=== PATIENT | female | born 1945 | race Caucasian/White ===

== ENCOUNTER → 2018-03-27 11:29 | Outpatient (CLI) | payer MEDICARE, SELFPAY ==
[2018-03-27 12:01] LABS: Add Manual Diff / Slide Review NO; Eosinophils Percent Auto 2.1 % (2-4); Hematocrit 39.3 % (36-46); Hemoglobin 13.1 g/dL (12.0-16.0); Lymphocytes Percent Auto 16.8 % (25-40); Mean Corpuscular HGB Conc 33.3 % (30-36); Mean Corpuscular Hemoglobin 28.5 PG (26-34); Mean Corpuscular Volume 85.4 fL (80-100); Neutrophils Absolute Auto 5400 /uL (3000-5900); Neutrophils Percent Auto 73.1 % (50-75); Platelet Count 351 X10^3/uL (150-400); Red Cell Distribution Width 14.6 % (11.6-14.8); White Blood Cell Count 7.4 X10^3/uL (4.5-11.0)
[2018-03-27 12:22] LABS: Alanine Aminotransferase 19 IU/L (9-52); Albumin Globulin Ratio 1.4 (1.0-2.8); Alkaline Phosphatase 74 U/L (38-126); Aspartate Aminotransferase 19 IU/L (14-36); BUN Creatinine Ratio 21.7 (6-22); Bilirubin Total 0.4 mg/dL (0.2-1.3); Calcium 9.1 mg/dL (8.4-10.2); Estimated Glomerular Filt Rate > 60.0 mL/min (>60); Globulin 2.9 g/dL (1.7-4.1); Glucose 116 mg/dL (80-110); HEMOLYSIS < 15 (0-50); Sodium 139 mmol/L (137-145); Total Protein 6.9 g/dL (6.3-8.2)
[2018-03-29 16:06] LABS: Cancer Antigen 27.29 22 U/mL (< 38)
== END ==
PROVIDERS: PCP Internal Medicine; Visit Provider Nurse Practitioner Gerontology
DX: C50.912 Malignant neoplasm of unspecified site of left female breast (principal)
CPT/HCPCS: 36415; 80053; 85025; 86300

== ENCOUNTER → 2018-09-01 14:55 | Outpatient (CLI) | payer MEDICARE, SELFPAY ==
--- NOTE | 2018-09-01 | DI.RAD.S_ITS ---
PROCEDURE: XR CHEST 2V INDICATIONS: DYSPNEA TECHNIQUE: 2 views of the chest were acquired. COMPARISON: [facility], CHEST 2 VIEW, 09/04/2015, 9:09. [facility], CHEST 2 VIEW, 12/30/2014, 15:13. [facility], CHEST 2 VIEW, 05/21/2014, 15:27. FINDINGS: Surgical changes and devices: None. Lungs and pleura: No pleural effusions or pneumothorax. Lungs are clear. Mediastinum: Mediastinal contours are normal except for a moderate-sized hiatal hernia behind the heart. Heart size is normal. Bones and chest wall: No suspicious bony abnormalities. Soft tissues appear unremarkable. IMPRESSION: Moderate hiatal hernia behind the heart. No source of dyspnea found. Dictated by: Sekou Villanueva M.D. on 09/01/2018 at 15:46 Approved by: Sekou Villanueva M.D. on 09/01/2018 at 15:47
== END ==
PROVIDERS: PCP Internal Medicine; Visit Provider Student in an Organized Health Care Education/Training Program
DX: R06.00 Dyspnea, unspecified (principal); K44.9 Diaphragmatic hernia without obstruction or gangrene
CPT/HCPCS: 71046

== ENCOUNTER → 2018-09-25 11:05 | Outpatient (CLI) | payer MEDICARE, SELFPAY ==
[2018-09-25 11:42] LABS: Add Manual Diff / Slide Review NO; Basophils Percent Auto 1.2 % (0-2); Eosinophils Percent Auto 1.4 % (2-4); Hematocrit 42.8 % (36-46); Hemoglobin 14.2 g/dL (12.0-16.0); Lymphocytes Percent Auto 17.3 % (25-40); Mean Corpuscular HGB Conc 33.2 % (30-36); Mean Corpuscular Hemoglobin 28.9 PG (26-34); Mean Corpuscular Volume 86.9 fL (80-100); Monocytes Percent Auto 5.5 % (3-14); Neutrophils Absolute Auto 5800 /uL (3000-5900); Neutrophils Percent Auto 74.6 % (50-75); Platelet Count 442 X10^3/uL (150-400); Red Blood Cell Count 4.93 X10^6/uL (4.0-5.2); Red Cell Distribution Width 14.1 % (11.6-14.8); White Blood Cell Count 7.8 X10^3/uL (4.5-11.0)
[2018-09-25 11:55] LABS: Alanine Aminotransferase 29 IU/L (9-52); Albumin 4.3 g/dL (3.5-5.0); Albumin Globulin Ratio 1.4 (1.0-2.8); Alkaline Phosphatase 71 U/L (38-126); Aspartate Aminotransferase 28 IU/L (14-36); BUN Creatinine Ratio 25.7 (6-22); Bilirubin Total 0.3 mg/dL (0.2-1.3); Blood Urea Nitrogen 18 mg/dL (7-17); Calcium 9.1 mg/dL (8.4-10.2); Carbon Dioxide 28 mmol/L (22-32); Chloride 101 mmol/L (98-107); Estimated Glomerular Filt Rate > 60.0 mL/min (>60); Globulin 3.1 g/dL (1.7-4.1); Glucose 131 mg/dL (80-110); HEMOLYSIS < 15 (0-50); Potassium 3.9 mmol/L (3.4-5.1); Sodium 141 mmol/L (137-145); Total Protein 7.4 g/dL (6.3-8.2)
[2018-09-27 14:27] LABS: Cancer Antigen 27.29 28 U/mL (< 38)
== END ==
PROVIDERS: PCP Internal Medicine; Visit Provider Nurse Practitioner Gerontology
DX: C50.911 Malignant neoplasm of unspecified site of right female breast (principal); C50.912 Malignant neoplasm of unspecified site of left female breast; Z17.0 Estrogen receptor positive status [ER+]; Z79.811 Long term (current) use of aromatase inhibitors
CPT/HCPCS: 36415; 80053; 85025; 86300

== ENCOUNTER → 2018-10-04 14:06 | Outpatient (CLI) | payer MEDICARE, SELFPAY | PROVIDERS: PCP Internal Medicine; Visit Provider Nurse Practitioner Gerontology | DX: M85.851 Other specified disorders of bone density and structure, right thigh (principal); Z78.0 Asymptomatic menopausal state; E07.9 Disorder of thyroid, unspecified; C50.919 Malignant neoplasm of unspecified site of unspecified female breast; Z82.62 Family history of osteoporosis; Z87.891 Personal history of nicotine dependence | CPT/HCPCS: 77080 ==

== ENCOUNTER → 2019-01-17 12:29 | Outpatient (CLI) | payer MEDICARE, SELFPAY ==
--- NOTE | 2019-01-17 | DI.MG.S_ITS ---
BILATERAL DIGITAL SCREENING MAMMOGRAM 3D/2D WITH CAD POST LUMPECTOMY: 01/17/2019 CLINICAL: Routine screening. Personal history of bilateral breast cancer. Family history of breast cancer. Comparison is made to exams dated: 01/16/2018 mammogram, 12/13/2016 mammogram, and 12/08/2015 mammogram - [facility]. The tissue of both breasts is heterogeneously dense. This may lower the sensitivity of mammography. Current study was also evaluated with a Computer Aided Detection (CAD) system. There are benign post operative findings in both breasts. There also are benign calcifications in both breasts. No significant masses, calcifications, or other findings are seen in either breast. There has been no significant interval change. IMPRESSION: There is no mammographic evidence of malignancy. A 1 year screening mammogram is recommended. This exam was interpreted at Station ID: [id number]. NOTE: For mammograms, a report in lay terms will be sent to the patient. Approximately 15% of breast malignancies will not be visualized mammographically. In the management of a palpable breast mass, a negative mammogram must not discourage biopsy of a clinically suspicious lesion. Electronically Signed By: Beau leigh/anjelica:01/17/2019 13:35:03 copy to: Daniel Diaz letter sent: Normal Exam ACR BI-RADS Category 2: Benign Finding(s) 3342F
== END ==
PROVIDERS: PCP Internal Medicine; Visit Provider Nurse Practitioner Gerontology
DX: Z12.31 Encounter for screening mammogram for malignant neoplasm of breast (principal); Z85.3 Personal history of malignant neoplasm of breast; Z80.3 Family history of malignant neoplasm of breast
CPT/HCPCS: 77063; 77067

== ENCOUNTER → 2020-01-18 10:45 | Outpatient (CLI) | payer MEDICARE, SELFPAY ==
--- NOTE | 2020-01-18 10:46 | DI.MG.S_ITS ---
BILATERAL DIGITAL SCREENING MAMMOGRAM 3D/2D WITH CAD POST LUMPECTOMY: 01/18/2020 CLINICAL: Routine screening. Personal history of bilateral breast cancer. Family history of breast cancer. Comparison is made to exams dated: 01/18/2020 mammogram, 01/17/2019 mammogram, and 01/16/2018 mammogram - [facility]. The tissue of both breasts is heterogeneously dense. This may lower the sensitivity of mammography. Current study was also evaluated with a Computer Aided Detection (CAD) system. There are possible developing oval equal density asymmetries in the right breast anterior depth central to the nipple seen on the craniocaudal view only. These appear more prominent and are noted within site of post-surgical scar. No other significant masses, calcifications, or other findings are seen in either breast. IMPRESSION: INCOMPLETE: NEEDS ADDITIONAL IMAGING EVALUATION The possible developing oval equal density asymmetries in the right breast is indeterminate. Additional views with possible ultrasound are recommended. This exam was interpreted at Station ID: [id number]. NOTE: For mammograms, a report in lay terms will be sent to the patient. Approximately 15% of breast malignancies will not be visualized mammographically. In the management of a palpable breast mass, a negative mammogram must not discourage biopsy of a clinically suspicious lesion. Electronically Signed By: Beau Pedroza M.D. aty/:01/18/2020 13:06:14 copy to: Daniel Diaz copy to: RADHA CASANOVA letter sent: Additional Imaging Needed ACR BI-RADS Category 0: Incomplete 3340F
== END ==
PROVIDERS: PCP Internal Medicine
DX: Z12.31 Encounter for screening mammogram for malignant neoplasm of breast (principal); Z85.3 Personal history of malignant neoplasm of breast; Z80.3 Family history of malignant neoplasm of breast
CPT/HCPCS: 77063; 77067

== ENCOUNTER → 2020-02-04 12:35 | Outpatient (CLI) | payer MEDICARE, SELFPAY ==
--- NOTE | 2020-02-04 12:36 | DI.US.S_ITS ---
ULTRASOUND OF RIGHT BREAST: 02/04/2020 CLINICAL: Patient returns today to evaluate a density in the right breast. Comparison is made to exams dated: 01/18/2020 mammogram, 01/18/2020 mammogram, 01/17/2019 mammogram, 01/16/2018 mammogram, and 12/13/2016 mammogram - [facility]. Ultrasound of the right breast was performed on the area of interest. Crawford scale images of the real-time examination were reviewed. There is a mass in the right breast at 7 o'clock anterior depth. IMPRESSION: PROBABLY BENIGN There is no sonographic abnormality seen in the right breast to correspond with the subtle mammography finding at 7 o'clock. The mammogram finding may represent evolution of the surgical scar. A follow-up right mammogram and an ultrasound in 6 months is recommended to demonstrate stability. This exam was interpreted at Station ID: [id number]. Electronically Signed By: Alisson Anthony M.D. lk/:02/04/2020 16:33:52 copy to: Daniel Diaz copy to: RADHA CASANOVA letter sent: Followup Recommended Ultrasound BI-RADS: 3 Probably benign
--- NOTE | 2020-02-04 12:36 | DI.MG.S_ITS ---
UNILATERAL RIGHT DIGITAL DIAGNOSTIC MAMMOGRAM 3D/2D WITH ADDITIONAL VIEWS POST LUMPECTOMY: 02/04/2020 CLINICAL: Additional evaluation requested from prior study. Comparison is made to exams dated: 01/18/2020 mammogram, 01/17/2019 mammogram, and 01/16/2018 mammogram - [facility]. The tissue of right breast is heterogeneously dense. This may lower the sensitivity of mammography. There is a possible developing oval equal density asymmetry in the right breast anterior depth central to the nipple seen on the craniocaudal view only. This is less prominent on additional views. No other significant masses or calcifications are seen in the breast. IMPRESSION: INCOMPLETE: NEEDS ADDITIONAL IMAGING EVALUATION The possible developing oval equal density asymmetry in the right breast is indeterminate. A targeted ultrasound of the right breast is recommended and will be performed immediately following this exam. This exam was interpreted at Station ID: [id number]. NOTE: For mammograms, a report in lay terms will be sent to the patient. Approximately 15% of breast malignancies will not be visualized mammographically. In the management of a palpable breast mass, a negative mammogram must not discourage biopsy of a clinically suspicious lesion. Electronically Signed By: Alisson Anthony M.D. lk/:02/04/2020 13:55:40 copy to: Daniel Diaz copy to: RADHA SANCHEZ BI-RADS Category 0: Incomplete 3340F
== END ==
PROVIDERS: PCP Internal Medicine; Referring Provider Internal Medicine Hematology & Oncology; Visit Provider Internal Medicine Hematology & Oncology
DX: R92.8 Other abnormal and inconclusive findings on diagnostic imaging of breast (principal); N63.13 Unspecified lump in the right breast, lower outer quadrant; C50.911 Malignant neoplasm of unspecified site of right female breast; Z17.0 Estrogen receptor positive status [ER+]
CPT/HCPCS: 76642; 77065; G0279

== ENCOUNTER → 2020-08-11 13:26 | Outpatient (CLI) | payer MEDICARE, SELFPAY ==
--- NOTE | 2020-08-11 13:28 | DI.US.S_ITS ---
LIMITED ULTRASOUND OF RIGHT BREAST: 08/11/2020 CLINICAL: Patient returns today to evaluate asymmetry in the right breast. Comparison is made to exams dated: 08/11/2020 mammogram, 02/04/2020 ultrasound, 02/04/2020 mammogram, and 01/18/2020 mammogram - [facility]. Color flow and real-time ultrasound of the right breast 7 o'clock region were performed. Crawford scale images of the real-time examination were reviewed. No abnormality in the region of the mammographic asymmetry in the right breast at 7 o'clock anterior depth near the lumpectomy site. This was not seen on prior ultrasound as well. No significant abnormalities were seen sonographically in the right breast. IMPRESSION: PROBABLY BENIGN No sonographic evidence of malignancy. No mass in the region of the asymmetry in the right breast. A follow-up mammogram in 6 months is recommended to demonstrate stability. This exam was interpreted at Station ID: [id number]. Electronically Signed By: Ryan Medina M.D. slc/:08/11/2020 15:49:52 copy to: Daniel Diaz letter sent: Followup Recommended Ultrasound BI-RADS: 3 Probably benign
--- NOTE | 2020-08-11 13:28 | DI.MG.S_ITS ---
UNILATERAL RIGHT DIGITAL DIAGNOSTIC MAMMOGRAM 3D/2D: 08/11/2020 CLINICAL: Additional evaluation requested from prior study. Comparison is made to exams dated: 02/04/2020 mammogram, 01/18/2020 mammogram, 01/18/2020 mammogram, 01/17/2019 mammogram, and 02/04/2020 [facility]. The tissue of right breast is heterogeneously dense. This may lower the sensitivity of mammography. There is a 0.4 cm oval equal density asymmetry in the right breast anterior depth central to the nipple. This may be seen inferior to the surgical scar on the MLO view. This is less prominent and was not seen on the prior ultrasound. There is a post-surgical scar associated with the asymmetry. No other significant masses or calcifications are seen in the breast. IMPRESSION: INCOMPLETE: NEEDS ADDITIONAL IMAGING EVALUATION Asymmetry in the right breast is indeterminate. A targeted ultrasound is recommended and will immediately follow. This exam was interpreted at Station ID: [id number]. NOTE: For mammograms, a report in lay terms will be sent to the patient. Approximately 15% of breast malignancies will not be visualized mammographically. In the management of a palpable breast mass, a negative mammogram must not discourage biopsy of a clinically suspicious lesion. Electronically Signed By: Ryan Medina M.D. slc/:08/11/2020 14:07:45 copy to: Daniel SANCHEZ BI-RADS Category 0: Incomplete [id number]
== END ==
PROVIDERS: PCP Internal Medicine; Referring Provider Internal Medicine; Visit Provider Internal Medicine
DX: R92.8 Other abnormal and inconclusive findings on diagnostic imaging of breast (principal); N64.89 Other specified disorders of breast
CPT/HCPCS: 76642; 77065; G0279

== ENCOUNTER 2020-08-24 11:11 | Emergency (ER) | payer MEDICARE, SELFPAY ==
[2020-08-24 11:25] VITALS: BP 176/87; PULSE 88; RESP 16; TEMP 37.2; O2SAT 97; BMI 22.4
--- NOTE | 2020-08-24 11:25 | DI.RAD.S_ITS ---
PROCEDURE: XR CHEST 1V INDICATIONS: chest pain TECHNIQUE: One view of the chest was acquired. COMPARISON: [facility], CR, XR CHEST 2V, 09/01/2018, 14:49. FINDINGS: Surgical changes and devices: None. Lungs and pleura: Lungs are clear. No pleural effusions or pneumothorax. Mediastinum: Moderate size hiatal hernia. Otherwise unremarkable appearance of the cardiac silhouette. Tortuous aorta. Bones and chest wall: No suspicious bony lesions. Overlying soft tissues appear unremarkable. IMPRESSION: No acute cardiopulmonary abnormality. Moderate-sized hiatal hernia. Dictated by: Rolando Negro M.D. on 08/24/2020 at 10:58 Approved by: Rolando Negro M.D. on 08/24/2020 at 10:59
--- NOTE | 2020-08-24 11:27 | ED.DIZZY ---
HPI - Dizziness General Chief Complaint: Dizziness Stated Complaint: Dizziness Time Seen by Provider: 08/24/20 11:23 Source: patient and EMS Limitations: no limitations History of Present Illness HPI Narrative: Patient is a 75-year-old female with history of ocular migraines presenting with a dizziness and headache. She said yesterday she was reading on her [place] when she suddenly got severe headache in her head. He then was feeling dizzy afterwards. She said every time she turns her head stood up she got extremely dizzy. She did not pass out. She has no numbness tingling or weakness. She does not feel any nausea. She did Google and came up with diagnosis of benign paroxysmal positional vertigo. She continue to listen to audible book, felt like her dizziness got a little bit better. However this morning she woke up and it was worse. Decided to come to the ED for further evaluation Related Data Home Medications Medication Instructions Recorded Confirmed CA PANTOTHENATE/FOLIC ACID/VIT 1 tab PO QDAY #0 02/21/13 05/14/20 (MULTIVITAMIN) Ginkgo Biloba (GINKGO BILOBA) 60 mg PO QDAY #0 02/21/13 05/14/20 [MICHEAL FOLIPLEX W/B12] 1 tab DAILY #0 02/21/13 05/14/20 cholecalciferol (vitamin D3) 10,000 unit PO QDAY #0 02/21/13 05/14/20 citalopram 10 mg PO QDAY #0 02/21/13 05/14/20 desipramine [Norpramin] 25 mg PO HS #0 02/21/13 05/14/20 metoprolol tartrate 50 mg PO HS #0 02/21/13 05/14/20 [CURCUMIN] 1 tab BID #0 04/22/17 05/14/20 [id number]-lpy-axj-yaoiacv-ast 1 cap PO QAM 04/03/18 05/14/20 [krill oil] levothyroxine [Levoxyl] 100 mcg PO DAILY 04/03/18 05/14/20 d-mannose 500 mg BID 10/02/18 05/14/20 Previous Rx's Medication Instructions Recorded letrozole [Femara] 2.5 mg PO DAILY #90 tab 02/19/20 letrozole [Femara] 2.5 mg PO QDAY #90 tab 02/19/20 meclizine 25 mg PO TID PRN #10 tab 08/24/20 meclizine 25 mg PO TID PRN #10 tab 08/24/20 Allergies Allergy/AdvReac Type Severity Reaction Status Date / Time Penicillins Allergy Severe RASH, HIGH Unverified 01/26/20 11:49 FEVER epinephrine Allergy Unknown I WANT TO Unverified 01/26/20 11:49 JUMP OUT OF MY SKIN Review of Systems Review of Systems ROS Unobtainable: All systems reviewed & are unremarkable except as noted in HPI and below Constitutional Constitutional: Denies chills, Denies fever(s), Reports headache(s), Denies lethargy and Denies weakness Eyes Eyes: Denies loss of vision ENT Ears, Nose, Mouth, and Throat: Reports vertigo, Reports dizziness and Reports headache(s) Cardiovascular Cardiovascular: Reports as per HPI, Reports lightheadedness, Denies dyspnea and Denies dyspnea on exertion Respiratory Respiratory: Denies cough, Denies dyspnea, Denies dyspnea on exertion and Denies wheezing Gastrointestinal Gastrointestinal: Denies abdominal pain, Denies change in bowel habits, Denies diarrhea, Denies nausea and Denies vomiting Musculoskeletal Musculoskeletal: Denies arthralgias and Denies back pain Integumentary/Breasts Skin/Breast: Denies pruritus, Denies erythema, Denies rash and Denies wounds Neurologic Neurologic: Reports as per HPI, Reports vertigo, Reports dizziness, Reports headache(s), Denies loss of vision and Denies weakness Allergic/Immunologic Allergic/Immunologic: Denies wheezing Patient History Medical History (Updated 08/24/20 @ 13:44 by Connie Chew DO) Breast cancer (Acute) Ocular migraine (Acute) Osteoporosis (Acute) Social History Smoking Status: Former smoker Smoking Status: Former smoker Exam Initial Vital Signs Initial Vital Signs: Vital Signs Temperature 98.9 F 08/24/20 11:25 Pulse Rate 88 08/24/20 11:25 Respiratory Rate 16 08/24/20 11:25 Blood Pressure 176/87 H 08/24/20 11:25 Pulse Oximetry 97 08/24/20 11:25 GENERAL: Well-appearing, well-nourished and in no acute distress. HEENT: Head atraumatic,EOMI, pupils reactive, face symmetric, moist mucous membranes CARDIOVASCULAR: Regular rate and rhythm without murmurs, rubs or gallops. RESPIRATORY: Breath sounds equal bilaterally, no wheezes rales or rhonchi. ABDOMEN: Soft, nontender. Normoactive bowel sounds all 4 quadrants. No guarding or rebound. EXTREMITIES: Normal range of motion, no clubbing or edema. Neurovascularly intact NEUROLOGICAL: Alert and oriented x4.Normal gait and speech. Cranial nerves II through XII grossly intact. Good jwxqjo-tf-ntiv, good wxnf-po-tgpa, strength equal bilaterally, no dysarthria or aphasia, sensation in tact to soft touch bilaterally, no visual changes, no facial droop SKIN: Warm, dry, no laceration, no petechiae, no rashes or lesions. Scores NIH Stroke Scale Level of Conciousness: Alert, keenly responsive Ask month/age: Answers both questions correctly. Open/close eyes, close hand: Performs both tasks correctly Best gaze horizontal: Normal Visual andersen: No visual loss Facial palsy: Normal symetrical movement Left arm drift: No drift for full 10 sec Right arm drift: No drift for full 10 sec Left leg drift: No drift for full 5 sec Right leg drift: No drift for full 5 sec Limb ataxia: Absent Sensory on face/arms/legs: Normal, no sensory loss Best language: No aphasia, normal Dysarthria: Normal Extinction or inattention: No abnormality Total NIH Stroke scale score: 0 Course Orders Ordered: ED Orders 08/24/20 11:16 EKG-12 Lead Stat 08/24/20 11:22 Complete Blood Count AUTO DIFF Stat Comprehensive Metabolic Panel Stat Lipase Stat Partial Thromboplastin Time Stat Prothrombin Time INR Stat Troponin & CK Cardiac Panel Stat 08/24/20 11:25 XR chest 1V Stat 08/24/20 11:37 CT head/brain wo con Stat Discontinued Medications Sodium Chloride (Normal Saline 0.9%) 1,000 mls @ 1,000 mls/hr IV BOLUS ONE Stop: 08/24/20 12:36 Last Infusion: 08/24/20 12:57 Dose: 0 mls/hr Documented by: Admin: 08/24/20 11:57 Dose: 1,000 mls/hr Documented by: KEANU Meclizine HCl (Antivert) 50 mg PO NOW ONE Stop: 08/24/20 11:38 Last Admin: 08/24/20 11:57 Dose: 50 mg Documented by: KEANU Vital Signs Vital signs: Vital Signs - 8 hr 08/24/20 11:25 08/24/20 13:51 Temperature 98.9 F Pulse Rate 88 77 Respiratory Rate 16 16 Blood Pressure 176/87 H 140/63 Pulse Oximetry 97 97 MDM - Dizziness Lab Data Attestation: I reviewed the patient's lab results. Result diagrams: 08/24/20 11:22 08/24/20 11:22 Labs: Lab Results 08/24/20 08/24/20 08/24/20 Range/Units 11:22 11:22 11:22 WBC 11.9 H (4.5-11.0) X10^3/uL RBC 4.95 (4.0-5.2) X10^6/uL Hgb 14.2 (12.0-16.0) g/dL Hct 43.3 (36-46) % MCV 87.5 (80-100) fL MCH 28.6 (26-34) PG MCHC 32.7 (30-36) % RDW 14.5 (11.6-14.8) % Plt Count 430 H (150-400) X10^3/uL Neut % (Auto) 85.3 H (50-75) % Lymph % (Auto) 10.3 L (25-40) % [place] % (Auto) 3.8 (3-14) % Eos % (Auto) 0.3 L (2-4) % Baso % (Auto) 0.3 (0-2) % Neut # (Auto) 99277 H (5402-2603) /uL Lymph # (Auto) 1200 (2783-4239) /uL [place] # (Auto) 400 (0-900) /uL Eos # (Auto) 0 (0-450) /uL Baso # (Auto) 0 (0-100) /uL PT 10.7 (10.1-12.7) SECONDS INR 0.9 (0.9-1.3) APTT 34 (26.4-36.2) SECONDS Sodium 138 (137-145) mmol/L Potassium 4.9 (3.4-5.1) mmol/L Chloride 104 (98-107) mmol/L Carbon Dioxide 29 (22-32) mmol/L BUN 10 (7-17) mg/dL Creatinine 0.57 (0.52-1.04) mg/dL Estimated GFR > 60.0 (>60) mL/min BUN/Creatinine Ratio 17.5 (6-22) Glucose 99 (80-110) mg/dL Calcium 9.6 (8.4-10.2) mg/dL Total Bilirubin 0.5 (0.2-1.3) mg/dL AST 21 (14-36) IU/L ALT 20 (<35) IU/L Alkaline Phosphatase 85 (38-126) U/L Total Creatine Kinase 31 (30-135) U/L CK-MB (CK-2) TNP CK-MB (CK-2) Rel Index TNP Troponin I < 0.012 (0.01-0.034) ng/mL Total Protein 7.7 (6.3-8.2) g/dL Albumin 4.4 (3.5-5.0) g/dL Globulin 3.3 (1.7-4.1) g/dL Albumin/Globulin Ratio 1.3 (1.0-2.8) Lipase 95 (23-300) U/L Imaging Data CT scan - head: Radiologist's Impression: PROCEDURE: CT HEAD/BRAIN WO CON INDICATIONS: dizzy atypical migraine TECHNIQUE: Noncontrast 4.5 mm thick angled axial sections acquired from the foramen magnum to the vertex, with coronal and sagittal reformats. For radiation dose reduction, the following was used: automated exposure control, adjustment of mA and/or kV according to patient size. COMPARISON: None. FINDINGS: Image quality: Excellent. CSF spaces: Basal cisterns are patent. No extra-axial fluid collections. Ventricles are normal in size and shape. Brain: No midline shift. No intracranial masses or hemorrhage. Crawford-white matter interface is normal. Skull and face: Calvarium and visualized facial bones are intact, without suspicious lesions. Sinuses: Visualized sinuses and mastoids are clear. IMPRESSION: No acute intracranial abnormality. Dictated by: Rolando Negro M.D. on 08/24/2020 at 11:00 ECG Data Attestation: I personally reviewed and interpreted this ECG as follows: Prior ECG tracings: not available for review Interpretation: Normal sinus rhythm rate 81 p.r. interval 180 QRS [address] changes MDM Narrative Medical decision making narrative: Patient is able to story in the ED to the restroom. She overall is feeling much better. Symptoms are consistent with benign paroxysmal positional vertigo. No focal deficits to suggest stroke at this time. Do not think posterior stroke symptoms improved significantly with meclizine. Discharge Plan Departure Patient Disposition: Home Clinical Impression: Benign paroxysmal positional vertigo Qualifiers: Laterality: unspecified laterality Qualified Code(s): H81.10 - Benign paroxysmal vertigo, unspecified ear Discharge Date/Time: 08/24/20 13:51 Instructions: DI for Vertigo Activity Restrictions/Additional Instructions: *You have been diagnosed with benign paroxysmal positional vertigo *What to do: You are having symptoms consistent with vertigo and probably an atypical migraine like headache. Recommend go home resting would recommend no stimulation including reading or so only do it in small amounts *Continue to take medications as directed Meclizine 25-50 mg every 8 hours if needed for dizziness--> SENT TO [facility] *Follow up with your primary care provider in 2-3 days *Return to ER if you should have worsening dizziness weakness numbness tingling or speech issues or any new, worsening or concerning symptoms Prescriptions: New meclizine 25 mg tablet 25 mg PO TID PRN (Reason: dizziness) Qty: 10 RF: 0 meclizine 25 mg tablet 25 mg PO TID PRN (Reason: dizziness) Qty: 10 RF: 0 No Action desipramine [Norpramin] 25 MG tablet 25 mg PO HS Qty: 0 RF: 0 citalopram 10 MG tablet 10 mg PO QDAY Qty: 0 RF: 0 metoprolol tartrate 50 MG tablet 50 mg PO HS Qty: 0 RF: 0 CA PANTOTHENATE/FOLIC ACID/VIT (MULTIVITAMIN) 1 tab PO QDAY Qty: 0 RF: 0 Ginkgo Biloba (GINKGO BILOBA) 60 mg PO QDAY Qty: 0 RF: 0 cholecalciferol (vitamin D3) 10,000 UNIT tablet 10,000 unit PO QDAY Qty: 0 RF: 0 [MICHEAL FOLIPLEX W/B12] 1 tab DAILY Qty: 0 RF: 0 [CURCUMIN] 1 tab BID Qty: 0 RF: 0 levothyroxine [Levoxyl] 112 mcg Tablet 100 mcg PO DAILY RF: 0 msdjt-rp-5-axp-ajn-sufxiqy-ast [krill oil] 1,829-405-70-50 mg Capsule 1 cap PO QAM RF: 0 d-mannose Powder 500 mg BID RF: 0 letrozole [Femara] 2.5 mg Tablet 2.5 mg PO DAILY Qty: 90 RF: 3 letrozole [Femara] 2.5 MG tablet 2.5 mg PO QDAY Qty: 90 RF: 2 Referrals: Daniel Diaz MD [Primary Care Provider] -
[2020-08-24 11:31] LABS: Add Manual Diff / Slide Review NO; Basophils Absolute Auto 0 /uL (0-100); Basophils Percent Auto 0.3 % (0-2); Eosinophils Absolute Auto 0 /uL (0-450); Eosinophils Percent Auto 0.3 % (2-4); Hematocrit 43.3 % (36-46); Hemoglobin 14.2 g/dL (12.0-16.0); Lymphocytes Absolute Auto 1200 /uL (1100-4500); Lymphocytes Percent Auto 10.3 % (25-40); Mean Corpuscular HGB Conc 32.7 % (30-36); Mean Corpuscular Hemoglobin 28.6 PG (26-34); Mean Corpuscular Volume 87.5 fL (80-100); Monocytes Absolute Auto 400 /uL (0-900); Monocytes Percent Auto 3.8 % (3-14); Neutrophils Absolute Auto 10100 /uL (1500-7000); Neutrophils Percent Auto 85.3 % (50-75); Platelet Count 430 X10^3/uL (150-400); Red Blood Cell Count 4.95 X10^6/uL (4.0-5.2); Red Cell Distribution Width 14.5 % (11.6-14.8); White Blood Cell Count 11.9 X10^3/uL (4.5-11.0)
[2020-08-24 11:34] LABS: INR 0.9 (0.9-1.3); Prothrombin Time 10.7 SECONDS (10.1-12.7)
--- NOTE | 2020-08-24 11:37 | DI.CT.S_ITS ---
PROCEDURE: CT HEAD/BRAIN WO CON INDICATIONS: dizzy atypical migraine TECHNIQUE: Noncontrast 4.5 mm thick angled axial sections acquired from the foramen magnum to the vertex, with coronal and sagittal reformats. For radiation dose reduction, the following was used: automated exposure control, adjustment of mA and/or kV according to patient size. COMPARISON: None. FINDINGS: Image quality: Excellent. CSF spaces: Basal cisterns are patent. No extra-axial fluid collections. Ventricles are normal in size and shape. Brain: No midline shift. No intracranial masses or hemorrhage. Crawford-white matter interface is normal. Skull and face: Calvarium and visualized facial bones are intact, without suspicious lesions. Sinuses: Visualized sinuses and mastoids are clear. IMPRESSION: No acute intracranial abnormality. Dictated by: Rolando Negro M.D. on 08/24/2020 at 11:00 Approved by: Rolando Negro M.D. on 08/24/2020 at 11:01
[2020-08-24 11:39] LABS: Alanine Aminotransferase 20 IU/L (<35); Albumin 4.4 g/dL (3.5-5.0); Albumin Globulin Ratio 1.3 (1.0-2.8); Alkaline Phosphatase 85 U/L (38-126); Aspartate Aminotransferase 21 IU/L (14-36); BUN Creatinine Ratio 17.5 (6-22); Bilirubin Total 0.5 mg/dL (0.2-1.3); Blood Urea Nitrogen 10 mg/dL (7-17); Calcium 9.6 mg/dL (8.4-10.2); Carbon Dioxide 29 mmol/L (22-32); Chloride 104 mmol/L (98-107); Creatine Kinase 31 U/L (30-135); Estimated Glomerular Filt Rate > 60.0 mL/min (>60); Globulin 3.3 g/dL (1.7-4.1); Glucose 99 mg/dL (80-110); HEMOLYSIS < 15 (0-50); Lipase 95 U/L (23-300); Potassium 4.9 mmol/L (3.4-5.1); Sodium 138 mmol/L (137-145); Total Protein 7.7 g/dL (6.3-8.2)
[2020-08-24 11:43] LABS: PTT Partial Thromboplastin Tim 34 SECONDS (26.4-36.2)
[2020-08-24 11:50] LABS: Troponin I < 0.012 ng/mL (0.01-0.034)
[2020-08-24] MEDS: MECLIZINE HCL 12.5 MG TABLET 50 MG PO (11:57)
[2020-08-24] MEDS: SODIUM CHLORIDE 0.9% 1,000 ML 1000 ML IV (11:57)
--- NOTE | 2020-08-24 12:24 | PC.NURSE ---
pt ambulated to [facility] and states significant vertigo improvement
[2020-08-24 13:51] VITALS: BP 140/63; PULSE 77; RESP 16; O2SAT 97
== END 2020-08-24 13:51 | disposition home or self-care (01) ==
PROVIDERS: Emergency Provider Emergency Medicine; PCP Internal Medicine
DX: H81.10 Benign paroxysmal vertigo, unspecified ear (principal); R51.9 Headache, unspecified
CPT/HCPCS: 36415; 70450; 71045; 80053; 82550; 83690; 84484; 85025; 85610; 85730; 93005; 96360; 99284; 99285

== ENCOUNTER → 2020-10-06 12:37 | Outpatient (CLI) | payer MEDICARE, SELFPAY | PROVIDERS: PCP Internal Medicine; Referring Provider Internal Medicine; Visit Provider Internal Medicine | DX: M85.851 Other specified disorders of bone density and structure, right thigh (principal); Z78.0 Asymptomatic menopausal state; C50.919 Malignant neoplasm of unspecified site of unspecified female breast | CPT/HCPCS: 77080 ==

== ENCOUNTER → 2021-03-04 12:49 | Outpatient (CLI) | payer MEDICARE, SELFPAY ==
--- NOTE | 2021-03-04 12:52 | DI.US.S_ITS ---
LIMITED ULTRASOUND OF RIGHT BREAST: 03/04/2021 CLINICAL: Palpable right breast lump. Comparison is made to exams dated: 03/04/2021 mammogram, 08/11/2020 ultrasound, 08/11/2020 mammogram, 02/04/2020 ultrasound, 02/04/2020 mammogram, and 01/18/2020 mammogram - [facility]. Color flow and real-time ultrasound of the right breast 6-7 o'clock, and retroareolar regions were performed. Crawford scale images of the real-time examination were reviewed. There are surgical clips and probably benign post surgical scar in the right breast at 7 o'clock that are not significantly changed. No finding to correspond to the patient's mammographic abnormality centrally within the lumpectomy bed. IMPRESSION: PROBABLY BENIGN There is no abnormality seen in the right breast to correspond with the mammography finding at 7 o'clock. A follow-up right mammogram and an ultrasound in 6 months is recommended to demonstrate continued stability. Findings and recommendations were conveyed to the patient at time of exam. This exam was interpreted at Station ID: [id number]. Electronically Signed By: Christina schrader/:03/04/2021 14:34:42 copy to: Daniel Diaz letter sent: Followup Recommended Ultrasound BI-RADS: 3 Probably benign
--- NOTE | 2021-03-04 12:52 | DI.MG.S_ITS ---
BILATERAL DIGITAL DIAGNOSTIC MAMMOGRAM 3D/2D SHORT-TERM FOLLOW-UP POST LUMPECTOMY: 03/04/2021 CLINICAL: Short follow up, due bilateral. Breast cancer. Family history of breast cancer. Comparison is made to exams dated: 08/11/2020 mammogram, 02/04/2020 mammogram, 01/18/2020 mammogram, and 01/18/2020 mammogram - [facility]. The tissue of both breasts is heterogeneously dense. This may lower the sensitivity of mammography. There is a 5 mm oval equal density asymmetry with a microlobulated margin in the right breast central to the nipple anterior depth. This is seen in additional views. This is not significantly changed in size or morphology. There are surgical clips surrounding the asymmetry. No other significant masses, calcifications, or other findings are seen in either breast. Mammograms are otherwise stable. IMPRESSION: INCOMPLETE: NEEDS ADDITIONAL IMAGING EVALUATION The 5 mm oval equal density asymmetry in the right breast is stable, but remains indeterminate. An ultrasound is recommended. This was performed immediately following this exam. This exam was interpreted at Station ID: [id number]. NOTE: For mammograms, a report in lay terms will be sent to the patient. Approximately 15% of breast malignancies will not be visualized mammographically. In the management of a palpable breast mass, a negative mammogram must not discourage biopsy of a clinically suspicious lesion. Electronically Signed By: Christina schrader/:03/04/2021 13:36:22 copy to: Daniel SANCHEZ BI-RADS Category 0: Incomplete [id number]
== END ==
PROVIDERS: PCP Internal Medicine; Referring Provider Internal Medicine; Visit Provider Internal Medicine
DX: R92.8 Other abnormal and inconclusive findings on diagnostic imaging of breast (principal); C50.919 Malignant neoplasm of unspecified site of unspecified female breast; N63.13 Unspecified lump in the right breast, lower outer quadrant; Z80.3 Family history of malignant neoplasm of breast
CPT/HCPCS: 76642; 77066; G0279

== ENCOUNTER → 2021-04-14 18:58 | Outpatient (ROUT) | payer MEDICARE, SELFPAY ==
[2021-04-14 19:38] LABS: Cholesterol 242 mg/dL (140-199); HDL Cholesterol 41 mg/dL (40-60); LDL Cholesterol Calculated 140 mg/dL (<100); Triglycerides 307 mg/dL (35-150)
[2021-04-14 20:06] LABS: TSH w/ Reflex to FT4 0.37 uIU/mL (0.47-4.68)
== END ==
PROVIDERS: PCP Internal Medicine; Visit Provider Internal Medicine
DX: E03.9 Hypothyroidism, unspecified (principal); E78.2 Mixed hyperlipidemia
CPT/HCPCS: 80061; 84439; 84443

== ENCOUNTER → 2021-09-04 10:05 | Outpatient (CLI) | payer MEDICARE, SELFPAY ==
--- NOTE | 2021-09-04 10:07 | DI.MG.S_ITS ---
UNILATERAL RIGHT DIGITAL DIAGNOSTIC MAMMOGRAM 3D/2D SHORT-TERM FOLLOW-UP POST LUMPECTOMY: 09/04/2021 CLINICAL: Short term follow up of the right breast. Comparison is made to exams dated: 03/04/2021 mammogram, 08/11/2020 mammogram, 02/04/2020 ultrasound, and 02/04/2020 mammogram - [facility]. The tissue of right breast is heterogeneously dense. This may lower the sensitivity of mammography. There is a stable 5 mm oval equal density asymmetry in the right breast central to the nipple anterior depth. This is seen in additional views. There are surgical clips associated with the asymmetry. No suspicious changes. No other significant masses or calcifications are seen in the breast. IMPRESSION: INCOMPLETE: NEEDS ADDITIONAL IMAGING EVALUATION The stable 5 mm oval equal density asymmetry in the right breast is consistent with a post-surgical scar. An ultrasound is recommended to document stability. This was performed immediately following this exam. This exam was interpreted at Station ID: [id number]. NOTE: For mammograms, a report in lay terms will be sent to the patient. Approximately 15% of breast malignancies will not be visualized mammographically. In the management of a palpable breast mass, a negative mammogram must not discourage biopsy of a clinically suspicious lesion. Electronically Signed By: Christina schrader/:09/04/2021 10:54:25 copy to: Daniel SANCHEZ BI-RADS Category 0: Incomplete [id number]
--- NOTE | 2021-09-04 10:07 | DI.US.S_ITS ---
LIMITED ULTRASOUND OF RIGHT BREAST: 09/04/2021 CLINICAL: Patient returns for a 6 month follow up of the right breast. Comparison is made to exams dated: 09/04/2021 mammogram, 03/04/2021 ultrasound, 03/04/2021 mammogram, 08/11/2020 ultrasound, 08/11/2020 mammogram, and 02/04/2020 ultrasound - [facility]. Ultrasound of the right breast 6-7 o'clock region was performed. Crawford scale images of the real-time examination were reviewed. There are surgical clips and post surgical scar in the right breast at 6- 7 o'clock that are not significantly changed and correlates with mammography findings. No new masses. IMPRESSION: BENIGN The irregular post-surgical scar in the right breast is stable and appears benign. Return to annual mammogram screening schedule is recommended. Findings and recommendations were conveyed to the patient at time of exam. This exam was interpreted at Station ID: [id number]. Electronically Signed By: Christina schrader/:09/04/2021 12:15:30 copy to: Daniel Diaz letter sent: Normal Exam Ultrasound BI-RADS: 2 Benign
== END ==
PROVIDERS: PCP Internal Medicine; Referring Provider Internal Medicine; Visit Provider Internal Medicine
DX: R92.8 Other abnormal and inconclusive findings on diagnostic imaging of breast (principal); L90.5 Scar conditions and fibrosis of skin
CPT/HCPCS: 76642; 77065; G0279

== ENCOUNTER 2021-10-25 13:11 | Emergency (ER) | payer MEDICARE, SELFPAY ==
[2021-10-25 13:00] VITALS: BP 159/70; PULSE 86; RESP 18; TEMP 36.6; O2SAT 98
--- NOTE | 2021-10-25 13:30 | ED.GENADULT ---
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 She inserted the swab into the testing fluid then into her nose then back into the testing fluid. She had a bit of burning in her nose and when she looked at the instructions more closely relay she had done the testing incorrectly. She contacted the nurse line and was told to immediately come to the hospital by calling 911. Aside from a bit of irritation in her no she is not currently having any symptoms. She did rinse her nose out with saline as soon as she was aware of her mistake. She is having no chest pain, palpitations, dyspnea, abdominal pain, vomiting, diarrhea, headache or sore throat. Related Data Home Medications Medication Instructions Recorded Confirmed CA PANTOTHENATE/FOLIC ACID/VIT 1 tab PO QDAY #0 02/21/13 09/23/21 (MULTIVITAMIN) Ginkgo Biloba (GINKGO BILOBA) 60 mg PO QDAY #0 02/21/13 09/23/21 [MICHEAL FOLIPLEX W/B12] 1 tab DAILY #0 02/21/13 09/23/21 cholecalciferol (vitamin D3) 250 5,000 unit PO QDAY #0 02/21/13 09/23/21 mcg (10,000 unit) tablet citalopram 10 mg tablet 20 mg PO QDAY #0 02/21/13 09/23/21 desipramine 25 mg tablet 25 mg PO HS #0 02/21/13 09/23/21 (Norpramin) metoprolol tartrate 50 mg tablet 50 mg PO HS #0 02/21/13 09/23/21 [CURCUMIN] 1 tab BID #0 04/22/17 09/23/21 krill 1,000 mg-omega-3 170 mg-dha 1 cap PO QAM 04/03/18 09/23/21 50 mg-epa 80 [id number]-vbxlc capsule (krill oil) levothyroxine 112 mcg tablet 100 mcg PO DAILY 04/03/18 09/23/21 (Levoxyl) d-mannose 500 mg BID 10/02/18 09/23/21 Previous Rx's Medication Instructions Recorded meclizine 25 mg tablet 25 mg PO TID PRN #10 tab 08/24/20 Allergies Allergy/AdvReac Type Severity Reaction Status Date / Time Penicillins Allergy Severe RASH, HIGH Unverified 01/26/20 11:49 FEVER epinephrine Allergy Unknown I WANT TO Unverified 01/26/20 11:49 JUMP OUT OF MY SKIN Review of Systems Review of Systems Narrative: Remainder of complete review of systems is otherwise unremarkable except for that included in the HPI. Patient History Medical History Breast cancer Ocular migraine Osteoporosis Social History Smoking Status: Former smoker Smoking Status: Former smoker Exam Narrative Exam Narrative: General: Healthy appearing, in no acute distress. Able to give a complete and coherent history. Well-nourished well-developed HEENT: Moist mucous membranes, normal sclera with reactive pupils, nasal mucosa is mildly erythematous bilaterally. No significant discharge or bleeding. Posterior pharynx is unremarkable. She has no cervical lymphadenopathy Neck: No JVD, supple Respiratory: Lungs are clear to auscultation, no wheezing no rales no rhonchi. Full and symmetrical air movement Cardiac: Regular rate and rhythm no murmurs no bruits Abdomen: Soft, nontender, good bowel tones, no flank pain Skin: Warm and dry, no rashes Neurologic: Grossly neurologically intact with no obvious asymmetries or abnormalities Extremities: No trauma, well perfused Psych: Cooperative, appropriate insight and affect Course Orders Ordered: Discontinued Medications Acetaminophen (Acetaminophen 325 Mg Tablet) 975 mg PO NOW ONE Stop: 10/25/21 14:16 Last Admin: 10/25/21 14:27 Dose: Not Given Documented by: MARVA Medical Decision Making [facility] Narrative Medical decision making narrative: 76-year-old woman who inadvertently applied the at home COVID-19 testing solution to the inside of her nose with a Q-tip. Was instructed to come in for further evaluation. Brief contact with poison control as indicated that large exposure to the solution could certainly be toxic and recommended observation for brief period of time. She is already rinse her nose at nicely with saline. Will keep her monitored for the next 60 minutes and anticipate discharge home should she remain completely asymptomatic. 2:40pm beginning to develop an aura associated with her migraine. She has taken 2 Tylenol and a coffee leonard and noticed that it is already abating. Aside from that she is doing well and is fine for discharge Discharge Plan Departure Patient Disposition: Home Clinical Impression: Chemical exposure Activity Restrictions/Additional Instructions: Thank you for coming in today I am glad that you are being responsible in taking the COVID test at home. Fortunately, even though you did it wrong, it does sound like the test was negative. You did the exact right thing by immediately rinsing her nose out with saline. We briefly reviewed her case with poison Control. They recommended a short period of observation. In the emergency department everything continued to look reassuringly normal for you. There is nothing further that you need to do from here. Good luck Prescriptions: No Action desipramine [Norpramin] 25 MG tablet 25 mg PO HS Qty: 0 0RF citalopram 10 MG tablet 20 mg PO QDAY Qty: 0 0RF metoprolol tartrate 50 MG tablet 50 mg PO HS Qty: 0 0RF CA PANTOTHENATE/FOLIC ACID/VIT (MULTIVITAMIN) 1 tab PO QDAY Qty: 0 0RF Ginkgo Biloba (GINKGO BILOBA) 60 mg PO QDAY Qty: 0 0RF cholecalciferol (vitamin D3) 10,000 UNIT tablet 5,000 unit PO QDAY Qty: 0 0RF [MICHEAL FOLIPLEX W/B12] 1 tab DAILY Qty: 0 0RF [CURCUMIN] 1 tab BID Qty: 0 0RF meclizine 25 mg tablet 25 mg PO TID PRN (Reason: dizziness) Qty: 10 0RF levothyroxine [Levoxyl] 112 mcg Tablet 100 mcg PO DAILY 0RF [id number] [krill oil] 1,[id number] mg Capsule 1 cap PO QAM 0RF d-mannose Powder 500 mg BID 0RF Referrals: Daniel Diaz MD [Primary Care Provider] -
[2021-10-25 14:45] VITALS: BP 159/70; PULSE 85; TEMP 37.1; O2SAT 97
[2021-10-25 14:52] VITALS: BP 159/70; PULSE 82; RESP 20; TEMP 37; O2SAT 99
--- NOTE | 2021-10-25 14:59 | PC.NURSE ---
Spoke with Davina POLO at poison control and states observe pt for cardiac changes for a few hours. OK to discharge home after
== END 2021-10-25 15:02 | disposition home or self-care (01) ==
LOC: ED 15:01
PROVIDERS: Emergency Provider Emergency Medicine; PCP Internal Medicine
DX: Z77.098 Contact with and (suspected) exposure to other hazardous, chiefly nonmedicinal, chemicals (principal); Z87.891 Personal history of nicotine dependence
CPT/HCPCS: 99281

== ENCOUNTER → 2022-03-01 16:55 | Outpatient (CLI) | payer MEDICARE, SELFPAY ==
--- NOTE | 2022-03-01 16:56 | DI.RAD.S_ITS ---
PROCEDURE: XR HIP W PEL IF DONE RT 2V INDICATIONS: Right hip pain TECHNIQUE: AP pelvis with lateral view(s) of the right hip(s). COMPARISON: None. FINDINGS: Bones: No fractures or dislocations. Pelvic ring appears intact. No suspicious bony lesions. Mild right hip osteoarthritic degenerative changes. Soft tissues: The visualized bowel gas pattern is normal. No suspicious soft tissue calcifications. IMPRESSION: Mild right hip osteoarthritis. Dictated by: Priscila Alcala MD, PhD on 03/02/2022 at 15:00 Approved by: Priscila Alcala MD, PhD on 03/02/2022 at 15:00
== END ==
PROVIDERS: PCP Internal Medicine; Referring Provider Internal Medicine; Visit Provider Internal Medicine
DX: M16.11 Unilateral primary osteoarthritis, right hip (principal)
CPT/HCPCS: 73502

== ENCOUNTER → 2022-03-18 13:36 | Outpatient (CLI) | payer MEDICARE, SELFPAY ==
--- NOTE | 2022-03-18 14:00 | DI.MG.S_ITS ---
BILATERAL DIGITAL SCREENING MAMMOGRAM 3D/2D WITH CAD: 03/18/2022 CLINICAL: Routine screening. History of bilateral breast cancer. Family history of breast cancer. Comparison is made to exams dated: 09/04/2021 mammogram, 03/04/2021 mammogram, 03/04/2021 ultrasound, and 08/11/2020 mammogram - [facility]. The tissue of both breasts is heterogeneously dense. This may lower the sensitivity of mammography. Current study was also evaluated with a Computer Aided Detection (CAD) system. There are benign post operative findings in both breasts. No significant masses, calcifications, or other findings are seen in either breast. There has been no significant interval change. IMPRESSION: BENIGN There is no mammographic evidence of malignancy. A 1 year screening mammogram is recommended. This exam was interpreted at Station ID: [id number]. NOTE: For mammograms, a report in lay terms will be sent to the patient. Approximately 15% of breast malignancies will not be visualized mammographically. In the management of a palpable breast mass, a negative mammogram must not discourage biopsy of a clinically suspicious lesion. Electronically Signed By: Beau leigh/anjelica:03/18/2022 17:39:27 copy to: Daniel Diaz letter sent: Normal Exam ACR BI-RADS Category 2: Benign Finding(s) 3342F
== END ==
PROVIDERS: PCP Internal Medicine; Referring Provider Internal Medicine Medical Oncology; Visit Provider Internal Medicine Medical Oncology
DX: Z12.31 Encounter for screening mammogram for malignant neoplasm of breast (principal); Z85.3 Personal history of malignant neoplasm of breast; Z80.3 Family history of malignant neoplasm of breast
CPT/HCPCS: 77063; 77067

== ENCOUNTER → 2022-05-17 12:31 | Outpatient (CLI) | payer MEDICARE, SELFPAY ==
[2022-05-17 13:51] LABS: Appearance Urine UA CLEAR; Bilirubin Urine UA NEGATIVE (NEGATIVE); Color Urine UA YELLOW; Glucose Urine UA NEGATIVE (Negative); Ketones Urine UA TRACE (NEGATIVE); Leukocyte Esterase Urine UA 1+ (NEGATIVE); Nitrite Urine UA NEGATIVE (Negative); Occult Blood Urine UA 1+ (Negative); Protein Urine UA TRACE (Negative); Specific Gravity Urine UA 1.025 (1.000-1.035); Urobilinogen Urine UA 0.2 E.U./dL (0.2)
[2022-05-17 13:59] LABS: Bacteria Urine None Seen; Culture Indicated Urine Specimen Cultured; RBC Urine 5-10/HPF (0-5/HPF); Squamous Epithelial Cell Urine 5-10 /HPF (0-5/HPF); WBC Urine 5-10/HPF (0-5/HPF)
== END ==
PROVIDERS: PCP Internal Medicine; Referring Provider Internal Medicine; Visit Provider Internal Medicine
DX: R30.0 Dysuria (principal)
CPT/HCPCS: 81001; 87086

== ENCOUNTER → 2022-05-27 14:42 | Outpatient (CLI) | payer MEDICARE, SELFPAY ==
[2022-05-27 18:18] LABS: Appearance Urine UA CLEAR; Bilirubin Urine UA NEGATIVE (NEGATIVE); Color Urine UA YELLOW; Glucose Urine UA NEGATIVE (Negative); Ketones Urine UA NEGATIVE (NEGATIVE); Leukocyte Esterase Urine UA 2+ (NEGATIVE); Nitrite Urine UA NEGATIVE (Negative); Occult Blood Urine UA TRACE-INTACT (Negative); Protein Urine UA NEGATIVE (Negative); Specific Gravity Urine UA 1.025 (1.000-1.035); Urobilinogen Urine UA 0.2 E.U./dL (0.2)
[2022-05-27 18:36] LABS: Bacteria Urine Few (2-10); Calcium Oxalate Crystals Urine Moderate; Culture Indicated Urine Specimen Cultured; RBC Urine 0-1/HPF (0-5/HPF); Squamous Epithelial Cell Urine 0-1 /HPF (0-5/HPF); Transitional Epi Cells Urine 1-5/HPF (0-5/HPF); WBC Urine 30-100/HPF (0-5/HPF)
== END ==
PROVIDERS: PCP Internal Medicine; Referring Provider Internal Medicine; Visit Provider Internal Medicine
DX: N39.0 Urinary tract infection, site not specified (principal)
CPT/HCPCS: 81001; 87077; 87086; 87186

== ENCOUNTER → 2022-11-19 08:14 | Outpatient (CLI) | payer MEDICARE, SELFPAY ==
[2022-11-19 10:16] LABS: Hematocrit 33.4 % (36-46); Hemoglobin 10.7 g/dL (12.0-16.0); Mean Corpuscular Hemoglobin 24.3 PG (26-34); Platelet Count 462 X10^3/uL (150-400); Red Cell Distribution Width 16.8 % (11.6-14.8)
[2022-11-19 10:49] LABS: HEMOLYSIS < 15 (0-50); Iron 35 ug/dL (37-170)
[2022-11-19 10:54] LABS: Alanine Aminotransferase 16 IU/L (<35); Albumin 3.6 g/dL (3.5-5.0); Albumin Globulin Ratio 1.3 (1.0-2.8); Alkaline Phosphatase 68 U/L (38-126); Aspartate Aminotransferase 18 IU/L (14-36); BUN Creatinine Ratio 24.1 (6-22); Bilirubin Total 0.3 mg/dL (0.2-1.3); Blood Urea Nitrogen 14 mg/dL (7-17); Calcium 8.4 mg/dL (8.4-10.2); Carbon Dioxide 27 mmol/L (22-32); Chloride 105 mmol/L (98-107); Cholesterol 223 mg/dL (140-199); Estimated Glomerular Filt Rate > 60 mL/min (>60); Globulin 2.8 g/dL (1.7-4.1); Glucose 89 mg/dL (80-110); HDL Cholesterol 38 mg/dL (40-60); HEMOLYSIS < 15 (0-50); LDL Cholesterol Calculated 151 mg/dL (<100); Potassium 4.3 mmol/L (3.4-5.1); Sodium 140 mmol/L (137-145); Total Protein 6.4 g/dL (6.3-8.2); Triglycerides 169 mg/dL (35-150)
[2022-11-19 10:56] LABS: Transferrin 350 mg/dL (206-381)
[2022-11-19 11:07] LABS: Percent Iron Saturation 8 % (15-50); Total Iron Binding Capacity 452 ug/dL (265-497)
[2022-11-19 11:25] LABS: TSH w/ Reflex to FT4 2.19 uIU/mL (0.47-4.68)
[2022-11-19 11:28] LABS: Ferritin 6 ng/mL (11-264)
== END ==
PROVIDERS: PCP Internal Medicine; Referring Provider Internal Medicine; Visit Provider Internal Medicine
DX: D64.9 Anemia, unspecified (principal); E78.2 Mixed hyperlipidemia; Z85.3 Personal history of malignant neoplasm of breast
CPT/HCPCS: 36415; 80053; 80061; 82728; 83540; 83550; 84443; 85027

== ENCOUNTER → 2022-11-26 13:15 | Outpatient (CLI) | payer MEDICARE, SELFPAY ==
[2022-11-26 21:33] LABS: Occult Blood 1 Negative (Negative); Occult Blood 2 Negative (Negative); Occult Blood 3 Negative (Negative)
== END ==
PROVIDERS: PCP Internal Medicine; Referring Provider Internal Medicine; Visit Provider Internal Medicine
DX: E61.1 Iron deficiency (principal); D64.9 Anemia, unspecified
CPT/HCPCS: 82270

== ENCOUNTER → 2022-11-30 12:31 | Outpatient (CLI) | payer MEDICARE, SELFPAY | PROVIDERS: PCP Internal Medicine; Referring Provider Internal Medicine; Visit Provider Internal Medicine | DX: Z78.0 Asymptomatic menopausal state (principal); Z13.820 Encounter for screening for osteoporosis; M81.0 Age-related osteoporosis without current pathological fracture; Z87.311 Personal history of (healed) other pathological fracture; Z92.23 Personal history of estrogen therapy; Z92.29 Personal history of other drug therapy | CPT/HCPCS: 77080 ==

== ENCOUNTER → 2022-12-24 12:29 | Outpatient (CLI) | payer MEDICARE, SELFPAY ==
[2022-12-24 14:50] LABS: Add Manual Diff / Slide Review NO; Basophils Absolute Auto 100 /uL (0-100); Basophils Percent Auto 0.9 % (0-2); Eosinophils Absolute Auto 200 /uL (0-450); Eosinophils Percent Auto 2.4 % (2-4); Hemoglobin 12.2 g/dL (12.0-16.0); Lymphocytes Absolute Auto 1200 /uL (1100-4500); Lymphocytes Percent Auto 15.8 % (25-40); Mean Corpuscular HGB Conc 32.9 % (30-36); Mean Corpuscular Hemoglobin 26.7 PG (26-34); Mean Corpuscular Volume 81.1 fL (80-100); Monocytes Absolute Auto 600 /uL (0-900); Monocytes Percent Auto 7.3 % (3-14); Neutrophils Absolute Auto 5800 /uL (1500-7000); Neutrophils Percent Auto 73.6 % (50-75); Platelet Count 384 X10^3/uL (150-400); Red Blood Cell Count 4.56 X10^6/uL (4.0-5.2); Red Cell Distribution Width 21.9 % (11.6-14.8); White Blood Cell Count 7.8 X10^3/uL (4.5-11.0)
[2022-12-24 15:04] LABS: Aspartate Aminotransferase 21 IU/L (14-36); BUN Creatinine Ratio 27.1 (6-22); Blood Urea Nitrogen 16 mg/dL (7-17); Calcium 8.6 mg/dL (8.4-10.2); Carbon Dioxide 27 mmol/L (22-32); Chloride 104 mmol/L (98-107); Estimated Glomerular Filt Rate > 60 mL/min (>60); Glucose 113 mg/dL (80-110); HEMOLYSIS < 15 (0-50); Potassium 3.9 mmol/L (3.4-5.1); Sodium 140 mmol/L (137-145)
[2022-12-24 15:05] LABS: HEMOLYSIS < 15 (0-50); Iron 162 ug/dL (37-170)
[2022-12-24 15:10] LABS: Anisocytosis 2+; Ovalocytes 1+; Poikilocytosis 1+
[2022-12-24 15:15] LABS: Percent Iron Saturation 42 % (15-50); Total Iron Binding Capacity 384 ug/dL (265-497); Transferrin 313 mg/dL (206-381)
[2022-12-24 15:22] LABS: Vitamin D 25 Hydroxy (D3) 40.2 ng/mL (30.0-100.0)
[2022-12-24 15:39] LABS: Ferritin 12 ng/mL (11-264)
== END ==
PROVIDERS: PCP Internal Medicine; Referring Provider Internal Medicine; Visit Provider Internal Medicine
DX: E55.9 Vitamin D deficiency, unspecified (principal); D50.9 Iron deficiency anemia, unspecified; M81.0 Age-related osteoporosis without current pathological fracture; D64.9 Anemia, unspecified
CPT/HCPCS: 36415; 80048; 82306; 82728; 83540; 83550; 84450; 85025

== ENCOUNTER → 2023-03-21 10:50 | Outpatient (CLI) | payer MEDICARE, SELFPAY ==
--- NOTE | 2023-03-21 | DI.MG.S_ITS ---
BILATERAL DIGITAL SCREENING MAMMOGRAM 3D/2D WITH CAD: 03/21/2023 CLINICAL: Routine screening. Breast cancer. Family history of breast cancer. Comparison is made to exams dated: 03/18/2022 mammogram, 09/04/2021 mammogram, 03/04/2021 mammogram, 08/11/2020 mammogram, 02/04/2020 mammogram, and 01/18/2020 mammogram - [facility]. Both breasts are heterogeneously dense, which may obscure small masses (category c / 51-75% glandular tissue). Current study was also evaluated with a Computer Aided Detection (CAD) system. There are benign post operative findings in both breasts. No significant masses, calcifications, or other findings are seen in either breast. There has been no significant interval change. IMPRESSION: BENIGN There is no mammographic evidence of malignancy. A 1 year screening mammogram is recommended. This exam was interpreted at Station ID: [id number]. NOTE: For mammograms, a report in lay terms will be sent to the patient. Approximately 15% of breast malignancies will not be visualized mammographically. In the management of a palpable breast mass, a negative mammogram must not discourage biopsy of a clinically suspicious lesion. Electronically Signed By: Jefe De Souza M.D. acr/penrad:03/21/2023 12:25:22 copy to: Daniel Diaz letter sent: Normal Exam ACR BI-RADS Category 2: Benign Finding(s) [id number]
== END ==
PROVIDERS: PCP Internal Medicine; Referring Provider Internal Medicine; Visit Provider Internal Medicine
DX: Z12.31 Encounter for screening mammogram for malignant neoplasm of breast (principal); Z85.3 Personal history of malignant neoplasm of breast; Z80.3 Family history of malignant neoplasm of breast
CPT/HCPCS: 77063; 77067

== ENCOUNTER → 2023-03-24 14:50 | Outpatient (CLI) | payer MEDICARE, SELFPAY ==
[2023-03-24 16:49] LABS: Hematocrit 37.1 % (36-46); Hemoglobin 12.6 g/dL (12.0-16.0); Mean Corpuscular HGB Conc 33.8 % (30-36); Mean Corpuscular Hemoglobin 29.3 PG (26-34); Mean Corpuscular Volume 86.7 fL (80-100); Platelet Count 359 X10^3/uL (150-400); Red Blood Cell Count 4.28 X10^6/uL (4.0-5.2); Red Cell Distribution Width 13.2 % (11.6-14.8); White Blood Cell Count 8.1 X10^3/uL (4.5-11.0)
[2023-03-24 18:00] LABS: HEMOLYSIS < 15 (0-50); Iron 47 ug/dL (37-170)
[2023-03-24 18:12] LABS: Percent Iron Saturation 11 % (15-50); Total Iron Binding Capacity 440 ug/dL (265-497); Transferrin 319 mg/dL (206-381)
[2023-03-24 18:36] LABS: Ferritin 7 ng/mL (11-264)
[2023-03-25 22:03] LABS: IgA 113 mg/dL (64-422); t-Transglutaminase IgA <2 U/mL (0-3)
== END ==
PROVIDERS: PCP Internal Medicine; Referring Provider Internal Medicine; Visit Provider Internal Medicine
DX: D64.9 Anemia, unspecified (principal); K90.0 Celiac disease
CPT/HCPCS: 36415; 82728; 82784; 83516; 83540; 83550; 85027

== ENCOUNTER → 2023-10-31 13:53 | Outpatient (CLI) | payer MEDICARE, SELFPAY ==
[2023-10-31 14:19] LABS: Appearance Urine UA CLEAR; Bilirubin Urine UA NEGATIVE (NEGATIVE); Color Urine UA YELLOW; Glucose Urine UA NEGATIVE (Negative); Ketones Urine UA NEGATIVE (NEGATIVE); Leukocyte Esterase Urine UA NEGATIVE (NEGATIVE); Nitrite Urine UA NEGATIVE (Negative); Occult Blood Urine UA 3+ (Negative); Protein Urine UA TRACE (Negative); Specific Gravity Urine UA 1.025 (1.000-1.035); Urobilinogen Urine UA 0.2 E.U./dL (0.2)
[2023-10-31 14:27] LABS: pH Urine UA 5.5 (4.5-8.0)
[2023-10-31 14:50] LABS: Bacteria Urine Occasional (0-1); Culture Indicated Urine Cult Not Indicated; RBC Urine 10-30/HPF (0-5/HPF); Squamous Epithelial Cell Urine 0-1 /HPF (0-5/HPF); WBC Urine 1-5/HPF (0-5/HPF)
== END ==
PROVIDERS: PCP Internal Medicine; Referring Provider Internal Medicine; Visit Provider Internal Medicine
DX: N39.0 Urinary tract infection, site not specified (principal)
CPT/HCPCS: 81001

== ENCOUNTER → 2024-01-17 15:25 | Outpatient (CLI) | payer MEDICARE, SELFPAY ==
[2024-01-17 16:01] LABS: Hematocrit 41.5 % (36-46); Hemoglobin 13.6 g/dL (12.0-16.0); Mean Corpuscular HGB Conc 32.8 % (30-36); Mean Corpuscular Hemoglobin 28.4 PG (26-34); Mean Corpuscular Volume 86.7 fL (80-100); Platelet Count 415 X10^3/uL (150-400); Red Blood Cell Count 4.79 X10^6/uL (4.0-5.2); Red Cell Distribution Width 13.4 % (11.6-14.8); White Blood Cell Count 9.8 X10^3/uL (4.5-11.0)
[2024-01-17 16:28] LABS: HEMOLYSIS < 15 (0-50); Iron 51 ug/dL (37-170)
[2024-01-17 16:30] LABS: Alanine Aminotransferase 18 IU/L (<35); Albumin 4.1 g/dL (3.5-5.0); Albumin Globulin Ratio 1.2 (1.0-2.8); Alkaline Phosphatase 67 U/L (38-126); Aspartate Aminotransferase 24 IU/L (14-36); BUN Creatinine Ratio 27.3 (6-22); Bilirubin Total 0.4 mg/dL (0.2-1.3); Blood Urea Nitrogen 18 mg/dL (7-17); Calcium 9.4 mg/dL (8.4-10.2); Carbon Dioxide 30 mmol/L (22-32); Chloride 105 mmol/L (98-107); Cholesterol 275 mg/dL (140-199); Estimated Glomerular Filt Rate > 60 mL/min (>60); Globulin 3.3 g/dL (1.7-4.1); Glucose 108 mg/dL (80-110); HDL Cholesterol 42 mg/dL (40-60); HEMOLYSIS < 15 (0-50); LDL Cholesterol Calculated 154 mg/dL (<100); Potassium 4.6 mmol/L (3.4-5.1); Sodium 138 mmol/L (137-145); Total Protein 7.4 g/dL (6.3-8.2); Triglycerides 397 mg/dL (35-150)
[2024-01-17 16:41] LABS: Percent Iron Saturation 11 % (15-50); Total Iron Binding Capacity 461 ug/dL (265-497); Transferrin 392 mg/dL (206-381)
[2024-01-17 17:00] LABS: TSH w/ Reflex to FT4 2.27 uIU/mL (0.47-4.68)
[2024-01-17 17:05] LABS: Ferritin 8 ng/mL (11-264)
== END ==
LOC: LAB 15:26
PROVIDERS: PCP Internal Medicine; Referring Provider Internal Medicine; Visit Provider Internal Medicine
DX: D64.9 Anemia, unspecified (principal); I10 Essential (primary) hypertension; E78.2 Mixed hyperlipidemia; E03.9 Hypothyroidism, unspecified
CPT/HCPCS: 36415; 80053; 80061; 82728; 83540; 83550; 84443; 85027

== ENCOUNTER → 2024-03-26 14:44 | Outpatient (CLI) | payer MEDICARE, SELFPAY ==
--- NOTE | 2024-03-26 14:47 | DI.MG.S_ITS ---
BILATERAL DIGITAL SCREENING MAMMOGRAM 3D/2D WITH CAD: 03/26/2024 CLINICAL: Routine screening. Bilateral breast cancer. Family history of breast cancer. Comparison is made to exams dated: 03/21/2023 mammogram, 03/18/2022 mammogram, and 03/04/2021 mammogram - [facility]. Both breasts are heterogeneously dense, which may obscure small masses (category c / 51-75% glandular tissue). Current study was also evaluated with a Computer Aided Detection (CAD) system. There are benign post operative findings in both breasts. No significant masses, calcifications, or other findings are seen in either breast. There has been no significant interval change. IMPRESSION: BENIGN There is no mammographic evidence of malignancy. A 1 year screening mammogram is recommended. This exam was interpreted at Station ID: [id number]. NOTE: For mammograms, a report in lay terms will be sent to the patient. Approximately 15% of breast malignancies will not be visualized mammographically. In the management of a palpable breast mass, a negative mammogram must not discourage biopsy of a clinically suspicious lesion. Electronically Signed By: Christina schrader/anjelica:03/26/2024 17:02:21 copy to: Daniel Diaz letter sent: Normal Exam ACR BI-RADS Category 2: Benign Finding(s) 3342F
== END ==
PROVIDERS: PCP Internal Medicine; Referring Provider Internal Medicine; Visit Provider Internal Medicine
DX: Z12.31 Encounter for screening mammogram for malignant neoplasm of breast (principal); R92.333 Mammographic heterogeneous density, bilateral breasts; Z85.3 Personal history of malignant neoplasm of breast; Z80.3 Family history of malignant neoplasm of breast
CPT/HCPCS: 77063; 77067

== ENCOUNTER → 2024-07-26 13:47 | Outpatient (CLI) | payer MEDICARE, SELFPAY ==
--- NOTE | 2024-07-26 13:48 | DI.RAD.S_ITS ---
PROCEDURE: XR SHOULDER LT MIN 2V INDICATIONS: Pain of left shoulder after fall TECHNIQUE: 3 views of the shoulder were acquired. COMPARISON: None. FINDINGS: Bones: No fractures or dislocations. No suspicious bony lesions. Visualized ribs appear intact. Soft tissues: No suspicious soft tissue calcifications. IMPRESSION: No visualized acute fracture or dislocation. However, if clinical concern and/or pain persist, short interval imaging followup in 7-10 days is recommended, as occult injury cannot be definitively excluded. Dictated by: June Spence M.D. on 07/26/2024 at 15:35 Approved by: June Spence M.D. on 07/26/2024 at 15:36
== END ==
PROVIDERS: PCP Internal Medicine; Referring Provider Internal Medicine; Visit Provider Internal Medicine
DX: S49.92XA Unspecified injury of left shoulder and upper arm, initial encounter (principal); M25.512 Pain in left shoulder
CPT/HCPCS: 73030

== ENCOUNTER → 2025-01-28 14:37 | Outpatient (CLI) | payer MEDICARE, SELFPAY ==
[2025-01-28 15:28] LABS: Hematocrit 25.1 % (36-46); Hemoglobin 7.9 g/dL (12.0-16.0); Mean Corpuscular HGB Conc 31.5 % (30-36); Mean Corpuscular Volume 66.6 fL (80-100); Platelet Count 561 X10^3/uL (150-400); Red Blood Cell Count 3.77 X10^6/uL (4.0-5.2); White Blood Cell Count 9.2 X10^3/uL (4.5-11.0)
[2025-01-28 16:01] LABS: Aspartate Aminotransferase 25 IU/L (14-36); BUN Creatinine Ratio 20.8 (6-22); Blood Urea Nitrogen 15 mg/dL (7-17); Calcium 9.1 mg/dL (8.4-10.2); Carbon Dioxide 27 mmol/L (22-32); Chloride 102 mmol/L (98-107); Cholesterol 256 mg/dL (140-199); Estimated Glomerular Filt Rate > 60 mL/min (>60); Glucose 109 mg/dL (80-110); HDL Cholesterol 44 mg/dL (40-60); HEMOLYSIS < 15 (0-50); LDL Cholesterol Calculated 163 mg/dL (<100); Potassium 3.8 mmol/L (3.4-5.1); Sodium 138 mmol/L (137-145); Triglycerides 244 mg/dL (35-150)
[2025-01-28 16:28] LABS: TSH w/ Reflex to FT4 2.42 uIU/mL (0.47-4.68)
== END ==
PROVIDERS: PCP Internal Medicine; Referring Provider Internal Medicine; Visit Provider Internal Medicine
DX: E03.9 Hypothyroidism, unspecified (principal); I10 Essential (primary) hypertension; E78.2 Mixed hyperlipidemia
CPT/HCPCS: 80048; 80061; 84443; 84450; 85027

== ENCOUNTER → 2025-01-30 14:29 | Outpatient (CLI) | payer MEDICARE, SELFPAY ==
[2025-01-30 15:26] LABS: Hematocrit 25.5 % (36-46); Hemoglobin 8.1 g/dL (12.0-16.0); Mean Corpuscular HGB Conc 31.7 % (30-36); Mean Corpuscular Hemoglobin 21.3 PG (26-34); Mean Corpuscular Volume 67.1 fL (80-100); Platelet Count 578 X10^3/uL (150-400); Red Blood Cell Count 3.79 X10^6/uL (4.0-5.2); Red Cell Distribution Width 18.1 % (11.6-14.8); White Blood Cell Count 8.4 X10^3/uL (4.5-11.0)
[2025-01-30 15:47] LABS: HEMOLYSIS < 15 (0-50); Iron 17 ug/dL (37-170)
[2025-01-30 15:59] LABS: Percent Iron Saturation 4 % (15-50); Total Iron Binding Capacity 469 ug/dL (265-497); Transferrin 396 mg/dL (206-381)
[2025-01-30 16:23] LABS: Ferritin 5 ng/mL (11-264)
== END ==
PROVIDERS: PCP Internal Medicine; Referring Provider Internal Medicine; Visit Provider Internal Medicine
DX: D64.9 Anemia, unspecified (principal)
CPT/HCPCS: 36415; 82728; 83540; 83550; 85027

== ENCOUNTER → 2025-02-08 14:19 | Outpatient (CLI) | payer MEDICARE, SELFPAY ==
--- NOTE | 2025-02-08 14:22 | DI.RAD.S_ITS ---
PROCEDURE: XR DEXA AXIAL SKELETON INDICATIONS: osteoporosis COMPARISON: [facility], , XR DEXA AXIAL SKELETON, 11/30/2022, 12:59. FINDINGS: Lumbar Spine: Bone mineral density 0.913 (previously 0.800) g/cm2, T score -1.1 (previously-2.0). Left Femoral Neck: Bone mineral density 0.621 (previously 0.645) g/cm2, T score -2.1 (previously-1.8). Left Hip: Bone mineral density 0.720 (previously 0.716) g/cm2, T score -1.8 (previously-1.9). Fracture Risk Calculation (when applicable): 10-year fracture risk of a major osteoporotic fracture 39 percent and of a hip fracture 25 percent. (T score greater or equal to -1.0 to: NORMAL) (T score from -1.1 to -2.4: OSTEOPENIA) (T score less than or equal to -2.5: OSTEOPOROSIS) IMPRESSION: Osteopenia---recommend repeat DEXA in 2-3 years for reassessment. Follow-up guidelines as follows: Osteoporosis: Consider a repeat DEXA and Vertebral Fracture Assessment (VFA) exam in 2 years or sooner if medically necessary, to reassess this patient's status. Osteopenia: Consider a repeat DEXA in 2-3 years to reassess this patient's status, or if there is a new clinical indication. Normal: Consider a repeat DEXA in 5 years or sooner, or if there is a new clinical indication. All treatment decisions require clinical judgment and consideration of individual patient factors, including patient preferences, comorbidities, previous drug use, risk factors not captured in the FRAX model (e.g., frailty, falls, vitamin D deficiency, increased bone turnover, interval significant decline in bone density ) and possible under- or over-estimation of fracture risk by FRAX. In addition, the NOF Guide recommends that FDA-approved medical therapies be considered in postmenopausal women and men age >= 50 years with a: * Hip or vertebral (clinical or morphometric) fracture * T-score of <=-2.5 at the spine or hip * Ten-year fracture probability by FRAX of >= 3% for hip fracture or >=20% for major osteoporotic fracture. Dictated by: Ayan Kevin M.D. on 02/09/2025 at 6:56 Approved by: Ayan Kevin M.D. on 02/09/2025 at 7:00
== END ==
PROVIDERS: PCP Internal Medicine; Referring Provider Internal Medicine; Visit Provider Internal Medicine
DX: M81.0 Age-related osteoporosis without current pathological fracture (principal); M85.89 Other specified disorders of bone density and structure, multiple sites
CPT/HCPCS: 77080

== ENCOUNTER 2025-02-25 09:33 | Day surgery (SDC) | payer MEDICARE, SELFPAY ==
--- NOTE | 2025-02-25 | PATH_ITS ---
[facility] Accession Number: [id number] No. of containers..02 Tissue . 01 Material submitted: . PART A: duodenum - DUODENAL PART B: stomach - STOMACH . 01 Clinical history: . B: R/O H PYLORI . 01 Diagnosis: A. DUODENUM, BIOPSY: Duodenal mucosa with no diagnostic abnormality. Negative for active inflammation, features of sprue, dysplasia, or malignancy. . B. STOMACH, BIOPSY: Gastric body mucosa with no diagnostic abnormality. No evidence of Helicobacter organisms on H/E stain. Negative for intestinal metaplasia. Negative for dysplasia or malignancy. . MRV 02/26/2025 1557 Local . 01 Electronically signed: . Daivd Au MD, PhD, Pathologist NPI- [id number] . 01 Gross description: . Part A: DUODENAL: Received in formalin are 2 fragment(s) of driver, soft tissue measuring 0.2 x 0.2 x 0.2 cm to 0.4 x 0.4 x 0.2 cm submitted entirely in 1 cassette(s) Part B: STOMACH: Received in formalin is 1 fragment(s) of driver, soft tissue measuring 0.3 x 0.2 x 0.2 cm submitted entirely in 1 cassette(s) /SAI 02/25/2025 2317 Local . 01 Pathologist provided ICD-10: D50.9 . 01 CPT . 065338, 914130 Specimen Comment: A courtesy copy of this report has been sent to [phone] Performed at: [address] [facility] [address], [place], [place] [id number] MD Isidro Gann MD Phone: [phone]
[2025-02-25 10:45] VITALS: BP 152/71; PULSE 62; RESP 16; TEMP 36.6; O2SAT 98
--- NOTE | 2025-02-25 11:09 | PM.HP.IH.1 ---
History of Present Illness History of Present Illness Date Patient Seen: 02/25/25 Chief complaint: SDC Narrative: Workup of transfusion requiring anemia [facility] Medical History (Updated 02/06/25 @ 10:44 by Jonathon Lyn MD) Hiatal hernia Colon cancer screening Slow transit constipation Age-related osteoporosis without current pathological fracture Anemia Mixed hyperlipidemia History of breast cancer Recurrent UTI Unilateral primary osteoarthritis, right hip Depression, major, recurrent Irritable bowel syndrome with diarrhea Acquired hypothyroidism Essential hypertension Ocular migraine Social History details: 01/2022 (Kyrie), celebraclint Maier, no children Smoking Status: Former smoker alcohol intake: never Meds Home Medications and Allergies Home Medications Medication Instructions Recorded Confirmed Type Ginkgo Biloba (GINKGO BILOBA) 60 mg PO QDAY ##0 02/21/13 02/06/25 History [MICHEAL FOLIPLEX W/B12] 1 tab DAILY ##0 02/21/13 02/06/25 History [CURCUMIN] 1 tab BID ##0 04/22/17 02/06/25 History krill 1,000 mg-omega-3 170 mg-dha 1 cap PO QAM 04/03/18 02/06/25 History 50 mg-epa 80 gc-ouehbk-gttbv capsule (krill oil) d-mannose 500 mg BID 10/02/18 02/06/25 History cholecalciferol (vitamin D3) 125 125 mcg PO DAILY 05/19/22 02/06/25 History mcg (5,000 unit) capsule multivitamin 1 tab PO DAILY 07/21/22 02/06/25 History L. acidophilus/Bifid. animalis 1 cap PO DAILY 03/24/23 02/06/25 History [Daily Probiotic] Pure synergy Bone Renewal 2 cap PO DAILY 03/24/23 02/06/25 History citalopram 20 mg tablet 20 mg PO DAILY #90 tabs 01/28/25 02/25/25 Rx levothyroxine 100 mcg tablet 100 mcg PO DAILY #90 tabs 01/28/25 02/25/25 Rx metoprolol tartrate 50 mg tablet 50 mg PO BID #180 tabs 01/28/25 02/25/25 Rx Allergies Allergy/AdvReac Type Severity Reaction Status Date / Time Penicillins Allergy Severe RASH, HIGH Verified 02/25/25 10:22 FEVER prednisone Allergy Severe hives Verified 02/25/25 10:22 sulfamethoxazole Allergy Intermediate Verified 02/25/25 10:22 [From Sulfamethoxazole-Trimethoprim] trimethoprim Allergy Intermediate Verified 02/25/25 10:22 [From Sulfamethoxazole-Trimethoprim] epinephrine Allergy Unknown I WANT TO Verified 02/25/25 10:22 JUMP OUT OF MY SKIN pravastatin AdvReac Intermediate flu-like Verified 02/25/25 10:22 symptoms rosuvastatin AdvReac Intermediate myalgias Verified 02/25/25 10:22 Exam Vital Signs (past 8 hours): - 02/25/25 10:45 Temperature 97.9 F Pulse Rate 62 Respiratory Rate 16 Blood Pressure 152/71 H Pulse Oximetry 98 Oxygen Delivery Method Room Air Oxygen Delivery Method Room Air Narrative Exam Narrative: Oropharynx free of lesions Chest clear to auscultation percussion Cardiac exam reveals no S3 or murmur Assessment & Plan Assessment & Plan narrative: History of anemia most likely blood loss anemia. Need for further workup with EGD and colonoscopy. Risks, benefits, alternatives have been explained. Time-Based Coding :: [TOTAL MINUTES] spent with patient and on the chart (including review of chart, obtaining history, exam, reviewing outside data, placing orders, documenting exam and treatment plan, and counseling patient) on [DATE]. [employer]EE Project [employer]ologist Document charge(s): No
--- NOTE | 2025-02-25 11:10 | P.OP.EGD&C_ITS ---
Operative Date/Time/Diagnoses Date of procedure: 02/25/25 Pre-op diagnosis: See indication Procedure & Clinicians Study performed: EGD and colonoscopy Same procedure as scheduled: Yes Indications: Anemia Surgeon: Arielle Ramires Procedure Notes Procedure in detail: After informed consent was obtained the patient was placed in the left lateral decubitus position. The video upper scope was placed into the oropharynx and with the patient's help swallowed into the esophagus. The esophagus stomach and duodenal were carefully examined. On withdrawal, retroflexed view the GE junction was performed. The scope was removed. The patient tolerated procedure well. The patient was then turned and the colonoscope substituted. This was placed into the rectum and easily passed the cecum. Slow withdrawal mucosa was carefully examined. The scope was removed. The patient tolerated procedure well. Blood loss none Complications none Sedation mac Findings EGD 1. Normal proximal and mid esophagus 2. 5 cm hiatal hernia noted with a diaphragmatic hiatus at 35 cm. While there was some scattered erythema there were no clear Dilan lesions 3. Patchy erythema in the mid to distal stomach biopsies taken to rule out Helicobacter 4. Normal duodenal bulb and sweep biopsies taken to rule out celiac Colonoscopy 1. Normal colonoscopy to cecum other than mild internal hemorrhoids No clear source GI blood loss was seen here. Consider sending her to [facility] for pill camera evaluation of the small bowel
[2025-02-25 12:00] VITALS: BP 105/43; PULSE 54; RESP 16; TEMP 36.6; O2SAT 96
[2025-02-25 12:05] VITALS: BP 96/39; PULSE 53; RESP 12; O2SAT 94
[2025-02-25] MEDS: LACTATED RINGERS 1,000 ML 42 ML IV (12:08)
[2025-02-25 12:10] VITALS: BP 91/41; PULSE 54; RESP 95; O2SAT 11
[2025-02-25 12:13] VITALS: BP 105/46; PULSE 54; RESP 12; O2SAT 94
[2025-02-25 12:18] VITALS: BP 125/44; PULSE 53; RESP 13; TEMP 36.6; O2SAT 95
== END 2025-02-25 12:40 | disposition home or self-care (01) ==
PROVIDERS: PCP Internal Medicine; Referring Provider Internal Medicine Gastroenterology; Visit Provider Internal Medicine Gastroenterology
PROC: 0DJ08ZZ Inspection of Upper Intestinal Tract, Via Natural or Artificial Opening Endoscopic (ICD-10-PCS; CPT 43239; principal; 2025-02-25 11:30)
PROC: 0DJD8ZZ Inspection of Lower Intestinal Tract, Via Natural or Artificial Opening Endoscopic (ICD-10-PCS; CPT 45378; 2025-02-25 11:30)
DX: D64.9 Anemia, unspecified (principal); K44.9 Diaphragmatic hernia without obstruction or gangrene; K64.8 Other hemorrhoids; Z87.891 Personal history of nicotine dependence
CPT/HCPCS: 43239; 45378; J2704

== ENCOUNTER → 2025-03-04 14:55 | Outpatient (CLI) | payer MEDICARE, SELFPAY ==
[2025-03-04 15:18] LABS: Add Manual Diff / Slide Review NO; Basophils Absolute Auto 100 /uL (0-100); Basophils Percent Auto 1.1 % (0-2); Eosinophils Absolute Auto 200 /uL (0-450); Eosinophils Percent Auto 2.8 % (2-4); Hematocrit 37.4 % (36-46); Hemoglobin 12.1 g/dL (12.0-16.0); Lymphocytes Absolute Auto 1400 /uL (1100-4500); Lymphocytes Percent Auto 19.2 % (25-40); Mean Corpuscular HGB Conc 32.4 % (30-36); Mean Corpuscular Hemoglobin 25.6 PG (26-34); Mean Corpuscular Volume 78.9 fL (80-100); Monocytes Absolute Auto 600 /uL (0-900); Monocytes Percent Auto 7.6 % (3-14); Neutrophils Absolute Auto 5200 /uL (1500-7000); Neutrophils Percent Auto 69.3 % (50-75); Platelet Count 359 X10^3/uL (150-400); Red Blood Cell Count 4.74 X10^6/uL (4.0-5.2); Red Cell Distribution Width 30.9 % (11.6-14.8); White Blood Cell Count 7.5 X10^3/uL (4.5-11.0)
[2025-03-04 15:28] LABS: HEMOLYSIS < 15 (0-50); Iron 127 ug/dL (37-170)
[2025-03-04 15:35] LABS: Anisocytosis 2+; Ovalocytes 2+; RBC Morphology See
[2025-03-04 15:39] LABS: Percent Iron Saturation 38 % (15-50); Total Iron Binding Capacity 330 ug/dL (265-497); Transferrin 281 mg/dL (206-381)
[2025-03-04 16:06] LABS: Ferritin 126 ng/mL (11-264)
== END ==
PROVIDERS: PCP Internal Medicine; Referring Provider Internal Medicine; Visit Provider Internal Medicine
DX: D64.9 Anemia, unspecified (principal)
CPT/HCPCS: 36415; 82728; 83540; 83550; 85025

== ENCOUNTER → 2025-04-17 14:32 | Outpatient (CLI) | payer MEDICARE, SELFPAY ==
[2025-04-17 15:19] LABS: Hematocrit 42.3 % (36-46); Hemoglobin 14.2 g/dL (12.0-16.0); Mean Corpuscular HGB Conc 33.6 % (30-36); Mean Corpuscular Hemoglobin 28.8 PG (26-34); Mean Corpuscular Volume 85.5 fL (80-100); Platelet Count 324 X10^3/uL (150-400); Red Blood Cell Count 4.95 X10^6/uL (4.0-5.2); Red Cell Distribution Width 24.8 % (11.6-14.8); White Blood Cell Count 8.3 X10^3/uL (4.5-11.0)
[2025-04-17 16:29] LABS: Alanine Aminotransferase 15 IU/L (<35); Albumin 4.2 g/dL (3.5-5.0); Albumin Globulin Ratio 1.7 (1.0-2.8); Alkaline Phosphatase 55 U/L (38-126); Aspartate Aminotransferase 23 IU/L (14-36); BUN Creatinine Ratio 24.1 (6-22); Bilirubin Total 0.2 mg/dL (0.2-1.3); Blood Urea Nitrogen 21 mg/dL (7-17); Calcium 9.5 mg/dL (8.4-10.2); Carbon Dioxide 28 mmol/L (22-32); Chloride 103 mmol/L (98-107); Estimated Glomerular Filt Rate > 60 mL/min (>60); Globulin 2.5 g/dL (1.7-4.1); Glucose 82 mg/dL (70-99); HEMOLYSIS < 15 (0-50); Potassium 4.6 mmol/L (3.4-5.1); Sodium 138 mmol/L (137-145); Total Protein 6.7 g/dL (6.3-8.2)
[2025-04-17 16:31] LABS: HEMOLYSIS < 15 (0-50); Iron 69 ug/dL (37-170)
[2025-04-17 16:43] LABS: Percent Iron Saturation 20 % (15-50); Total Iron Binding Capacity 344 ug/dL (265-497); Transferrin 293 mg/dL (206-381)
[2025-04-17 17:05] LABS: Ferritin 63 ng/mL (11-264)
== END ==
PROVIDERS: PCP Internal Medicine; Referring Provider Internal Medicine; Visit Provider Internal Medicine
DX: D64.9 Anemia, unspecified (principal); I10 Essential (primary) hypertension
CPT/HCPCS: 36415; 80053; 82728; 83540; 83550; 85027

== ENCOUNTER → 2025-05-08 12:48 | Outpatient (CLI) | payer MEDICARE, SELFPAY ==
--- NOTE | 2025-05-08 12:50 | DI.MG.S_ITS ---
MM screening mammo BI: 05/08/2025. BI-RADS: 2 CLINICAL: 79-year old female for bilateral screening mammogram. No Tyrer-Cuzick risk score calculation due to the patient's personal history of breast cancer. 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 Status-post bilateral lumpectomies with radiation therapy and hormonal therapy. No first-degree family history of breast cancer. Current reported family history of breast cancer: maternal aunt. The patient had prior bilateral breast biopsies. PRIOR EXAMS 03/26/2024, 03/21/2023, 03/18/2022, 09/04/2021, MAMMOGRAPHY TECHNIQUE: 2D and 3D (tomosynthesis) digital mammographic views obtained, with additional images as needed for full coverage. Current study was also evaluated with a Computer Aided Detection (CAD) system. DENSITY C. The breasts are heterogeneously dense, which may obscure small masses. MAMMOGRAPHY FINDINGS Bilateral: Benign-appearing post-surgical changes noted. There are no suspicious masses, calcifications, or other findings in the breast. No significant change from comparison. IMPRESSION: * No evidence of malignancy with benign findings. RECOMMENDATIONS Bilateral * Annual screening mammography. OVERALL ASSESSMENT CATEGORY BI-RADS-2: Benign. The [employer] recommends annual screening mammography beginning at age 40 for women with average risk of breast cancer. ELECTRONICALLY SIGNED: Christina Hudson M.D. on 05/11/2025 at 02:14:30 PM PT Interpreting Station ID: [id number]
== END ==
PROVIDERS: PCP Internal Medicine; Referring Provider Internal Medicine; Visit Provider Internal Medicine
DX: Z12.31 Encounter for screening mammogram for malignant neoplasm of breast (principal); Z85.3 Personal history of malignant neoplasm of breast; Z80.3 Family history of malignant neoplasm of breast; R92.333 Mammographic heterogeneous density, bilateral breasts
CPT/HCPCS: 77063; 77067

== ENCOUNTER → 2025-10-08 14:07 | Outpatient (CLI) | payer MEDICARE, SELFPAY ==
[2025-10-08 14:34] LABS: Hematocrit 41.0 % (36-46); Hemoglobin 13.8 g/dL (12.0-16.0); Mean Corpuscular HGB Conc 33.6 % (30-36); Mean Corpuscular Hemoglobin 30.3 PG (26-34); Mean Corpuscular Volume 90.0 fL (80-100); Platelet Count 360 X10^3/uL (150-400)
[2025-10-08 14:57] LABS: HEMOLYSIS 19 (0-50); Iron 137 ug/dL (37-170)
[2025-10-08 14:59] LABS: Alanine Aminotransferase 14 IU/L (<35); Albumin 4.1 g/dL (3.5-5.0); Albumin Globulin Ratio 1.5 (1.0-2.8); Alkaline Phosphatase 64 U/L (38-126); Blood Urea Nitrogen 18 mg/dL (7-17); Calcium 9.7 mg/dL (8.4-10.2); Carbon Dioxide 29 mmol/L (22-32); Chloride 103 mmol/L (98-107); Estimated Glomerular Filt Rate > 60 mL/min (>60); Globulin 2.8 g/dL (1.7-4.1); Glucose 109 mg/dL (70-99); HEMOLYSIS < 15 (0-50); Potassium 4.2 mmol/L (3.4-5.1); Sodium 140 mmol/L (137-145); Total Protein 6.9 g/dL (6.3-8.2)
[2025-10-08 15:08] LABS: Percent Iron Saturation 35 % (15-50); Total Iron Binding Capacity 393 ug/dL (265-497); Transferrin 332 mg/dL (206-381)
[2025-10-08 15:29] LABS: TSH w/ Reflex to FT4 2.04 uIU/mL (0.47-4.68)
[2025-10-08 15:34] LABS: Ferritin 12 ng/mL (11-264)
== END ==
PROVIDERS: PCP Internal Medicine; Referring Provider Internal Medicine; Visit Provider Internal Medicine
DX: E03.9 Hypothyroidism, unspecified (principal); D50.9 Iron deficiency anemia, unspecified; I10 Essential (primary) hypertension
CPT/HCPCS: 36415; 80053; 82728; 83540; 83550; 84443; 85027

== ENCOUNTER → 2025-11-06 10:47 | Outpatient (CLI) | payer MEDICARE, SELFPAY ==
[2025-11-06 13:21] LABS: Blood Urea Nitrogen 19 mg/dL (7-17); Calcium 9.8 mg/dL (8.4-10.2); Carbon Dioxide 33 mmol/L (22-32); Chloride 98 mmol/L (98-107); Estimated Glomerular Filt Rate > 60 mL/min (>60); Glucose 64 mg/dL (70-99); HEMOLYSIS < 15 (0-50); Potassium 3.9 mmol/L (3.4-5.1); Sodium 141 mmol/L (137-145)
== END ==
PROVIDERS: PCP Internal Medicine; Referring Provider Internal Medicine; Visit Provider Internal Medicine
DX: I10 Essential (primary) hypertension (principal)
CPT/HCPCS: 36415; 80048